=== PATIENT | male | born 1985 | race African-American/Black ===

== ENCOUNTER 2018-01-12 09:06 | Day surgery (SDC) | payer OTHER ==
[~2018-01-12 09:06] MED LIST: LIDOCAINE 2% MDV 20 ML VIAL As Ordered; PROPOFOL 200 MG/20 ML VIAL As Ordered
== END 2018-01-12 11:26 | disposition home or self-care (01) ==
LOC: M OPP 09:06
DX: K62.5 Hemorrhage of anus and rectum (principal); Z80.0 Family history of malignant neoplasm of digestive organs; K21.9 Gastro-esophageal reflux disease without esophagitis; R51 Headache; M75.51 Bursitis of right shoulder; Z79.899 Other long term (current) drug therapy
CPT/HCPCS: 45378